=== PATIENT | male | born 1950 | race Caucasian/White ===

== ENCOUNTER 2016-04-17 04:17 | Emergency (ER) | payer MEDICARE ==
[2016-04-17] MEDS ORDERED: IOPAMIDOL 300 (61%) 100 ML VIAL IV ONE (04:18)
[2016-04-17] MEDS ORDERED: LACTATED RINGERS 1,000 ML ONE ×2 (04:45→05:47)
[2016-04-17 04:59] LABS: ABSOLUTE NEUTROPHIL COUNT 14.2 K/mm3 (1.8-7.7); BASO # 0.1 K/mm3 (0.0-0.2); BASO % 0.2 % (0.2-1.0); EOS # 2.9 (0.0-0.5); EOS % 13.6 % (0.9-2.9); HEMATOCRIT 49.4 % (32.0-52.0); HEMOGLOBIN 16.3 gm/l (14.0-18.0); IMM NEUT # 0.1 K/mm3 (0-0.2); IMM NEUT% 0.5 % (0-1); LYMPH # 2.8 (1.0-4.8); LYMPH % 13.4 % (15-45); MEAN CELL VOLUME 90.3 fl (80.0-94.0); MEAN CORPUSCULAR HEMOGLOBIN 29.8 pg (27.0-31.0); MEAN PLATELET VOLUME 10.5 fl (7.4-10.4); MONO # 1.1 (0.0-0.8); MONO % 5.3 % (4-12); PLATELET COUNT 253 K/mm3 (130-400); RED CELL DISTRIBUTION WIDTH 13.1 % (11.5-14.5)
[2016-04-17 05:37] LABS: ALB/GLOB RATIO 1.2 (>1.0); ALBUMIN 3.7 gm/dL (3.5-5.7); CALCIUM 8.8 mg/dL (8.6-10.3)
[2016-04-17 06:06] LABS: BAND 1 % (0-10); BASOPHIL 0 % (0-1); EOSINOPHIL 8 % (1-3); LYMPHOCYTE 14 % (15-45); MONOCYTE 3 % (4-12); NEUTROPHILS 74 % (43-75); TOTAL CELLS COUNTED 100
[2016-04-17 06:07] LABS: PLATELET ESTIMATE NORMAL (NORMAL)
--- NOTE | 2016-04-17 07:39 | RAD ---
Exam: Two-view chest COMPARISON: None INDICATION: Nausea, vomiting and diarrhea for 3 days. FINDINGS: PA and lateral views of the chest were obtained. Cardiac silhouette is within normal limits. Lungs are normally inflated. There is no focal airspace disease or pleural effusion. There is minor linear opacity near the left hilum, which may reflect either scarring or atelectasis. Lung leach are otherwise symmetric. Bones of the chest wall within normal limits. IMPRESSION: No acute pulmonary process.
--- NOTE | 2016-04-17 08:15 | CT ---
Exam Type: ABD/PELVIS W/ CON Date and Time: 04/17/2016 12:00 AM Clinical information: Nausea, vomiting and diarrhea for 3 days. Comparison: 03/11/2014 Technique: Contiguous axial 4 mm images were obtained from the lung bases through the pelvis after the uneventful IV administration of 125 cc of Isovue-300. Sagittal and coronal reformations with high resolution lung algorithm images were also obtained at this time. CT DI: 13.4 DLP 803.7 FINDINGS: Lung base : Dependent and atelectatic changes. Visualized heart:There is no pericardial effusion. LIVER: within normal limits. BILE DUCTS: normal caliber. GALLBLADDER: No calcified gallstones. Normal caliber wall. PANCREAS: within normal limits. SPLEEN: within normal limits. ADRENALS: within normal limits. KIDNEYS: within normal limits. Stomach and small BOWEL: Normal caliber. Large bowel: Air and stool are noted within the large bowel. Fluid is noted within the cecum. Additionally, there is an area of possible mass identified best seen on axial image 86 measuring approximately 4.6 x 2.3 cm. Differential considerations would include stool. Correlation with any recent colonoscopy data would be recommended. Consideration for evaluation via outpatient colonoscopy could also be made if no recent data is present. Appendix is normal. Diverticulosis without diverticulitis. LYMPH NODES: No enlarged mesenteric lymph nodes. PERITONEUM: no ascites or free air, no fluid collection. VESSELS: within normal limits RETROPERITONEUM: within normal limits. ABDOMINAL WALL: within normal limits. Bladder: Normal BONES: Mild degenerative changes. IMPRESSION: No acute inflammatory process within the abdomen or pelvis. Close clinical and radiographic follow-up are recommended. Possible mass lesion versus stool within the cecum. Correlation with any recent colonoscopic data would be recommended. Consideration for colonoscopy should be made if no recent data is present. Findings were called to Dr. Mackey at approximately 0 650 hours on 04/17/2016.
== END 2016-04-17 08:32 | disposition home or self-care (01) ==
LOC: ED 04:17
DX: K63.9 Disease of intestine, unspecified (principal); D72.1 Eosinophilia; R11.10 Vomiting, unspecified; R19.7 Diarrhea, unspecified; R10.9 Unspecified abdominal pain; E11.9 Type 2 diabetes mellitus without complications; Z79.84 Long term (current) use of oral hypoglycemic drugs
CPT/HCPCS: 83605; 83690; 85025; 80053; 84484; 71020; 74177; 99283; 96360; 93005; 99284; J7120 ×2; Q9967

== ENCOUNTER 2016-05-02 08:27 | Day surgery (SDC) | payer MEDICARE ==
[~2016-05-02 08:27] MED LIST: LACTATED RINGERS 1,000 ML IV SCH
[2016-05-02] MEDS ORDERED: PROPOFOL 20 ML IV ONE ×2 (08:52)
[2016-05-02] MEDS ORDERED: LIDOCAINE 2% (PRES FREE) 5 ML VIAL ONE (08:52)
[2016-05-02] MEDS ORDERED: IV START KIT ONE (09:19)
[2016-05-02] MEDS ORDERED: LACTATED RINGERS 1,000 ML ONE (09:19)
--- NOTE | 2016-05-06 13:20 | SURGPATH ---
[facility] [address] [place] [id number] Patient Name: SHAHRAM GAUTHIER MR#: [id number] : 1950 Gender: M Specimen #: [id number] Collected: 05/02/2016 Received: 05/03/2016 Reported: 05/06/2016 Submitting Phys: CONCHIS LU Copy To Phys: [facility] Clinical History / Pre-Operative Diagnosis: NAUSEA; VOMITING; DIARRHEA; ABNORMAL ABDOMINAL CT; RULE OUT CA Specimen Source / Surgical Procedure Performed: #1-CECAL MASS BIOPSY; #2-SIGMOID POLYP AT 25 CM; #3-RECTOSIGMOID BIOPSIES AT 10 CM HIGH PRIORITY DIAGNOSIS. REQUIRES CLINICAL ATTENTION Interpretation: 1. CECUM, BIOPSY: - MULTIPLE FRAGMENTS OF TUBULOVILLOUS ADENOMAS. - NO EVIDENCE OF MALIGNANCY. 2. COLON, SIGMOID 25 CM, BIOPSY: - TUBULAR ADENOMA. - NO EVIDENCE OF MALIGNANCY. 2. COLON, RECTOSIGMOID 10 CM, BIOPSY: - INVASIVE, MODERATELY DIFFERENTIATED ADENOCARCINOMA. Comment: The slide from part #3 has been reviewed at the pathology intradepartmental conference and the pathologists present agree with the diagnosis. Electronically Signed Out Harry Ugarte M.D., Ph.D. Gross Description: #1 The specimen is received in a formalin filled container labeled with the patient's name and "cecal mass biopsy". Seven hutchison-cui biopsies are 0.2-0.4 cm. Totally embedded in cassette #1. #2 The specimen is received in a formalin filled container labeled with the patient's name and "sigmoid polyp at 25 cm". A polypoid cui biopsy is 0.5 x 0.4 x 0.3 cm. Totally embedded in cassette #2. #3 The specimen is received in a formalin filled container labeled with the patient's name and "rectosigmoid biopsies at 10 cm". Seven hutchison-cui biopsies are 0.2-0.3 cm. Totally embedded in cassette #3. Audra Lock Microscopic Description: 1. Examination of multiple levels from the cecum biopsy shows multiple fragments of colonic mucosa with adenomatous changes within glands, tubules, and blunted villi. There is no evidence of malignancy. 2. Examination of multiple levels from the sigmoid colon biopsy at 25 cm shows a single fragment of colonic mucosa with adenomatous changes within glands and tubules. There is no evidence of malignancy. 3. Examination of multiple levels from the rectosigmoid colon biopsy at 10 cm shows fragments of ulcerated colonic mucosa with a proliferation of atypical epithelial cells in glands percolating through a fibrotic, desmoplastic stroma. 1: 06047 2: 22403 3: 63777 D12.0 D12.5 C19
--- NOTE | 2016-05-07 13:22 | PROCNOTE ---
Clovis Pollard [id number] DATE: 05/07/2016 This 66-year-old male patient within the practice of Jessica Beltr[facility] underwent colonoscopy on May 02 for a CAT scan that showed a cecal mass. The May 02 colonoscopy demonstrated a very large sessile cecal mass not amenable to colonoscopic polypectomy. Additionally noted, was a sigmoid semiannular mass with an appearance of carcinoma. A small tubular adenoma was additionally removed from the left colon. The pathology report demonstrates biopsies of the cecal mass showing tubular adenoma without dysplasia. The rectosigmoid junction mass shows invasive adenocarcinoma. The patient has been contacted and informed and surgical referral recommended and he agrees. The patient is being referred to Dr. Bimal Perez. Medical follow up will be by Jessica Beltran NP. JOB: [id number] CC: ERIN Heard Dr.
== END 2016-05-02 11:20 | disposition home or self-care (01) ==
LOC: SDC 08:27
PROVIDERS: ATTEND Internal Medicine Gastroenterology
PROC: 0DBN8ZX Excision of Sigmoid Colon, Via Natural or Artificial Opening Endoscopic, Diagnostic (ICD-10-PCS; principal; 2016-05-02)
PROC: 0DBH8ZX Excision of Cecum, Via Natural or Artificial Opening Endoscopic, Diagnostic (ICD-10-PCS; 2016-05-02)
PROC: 0DBP8ZX Excision of Rectum, Via Natural or Artificial Opening Endoscopic, Diagnostic (ICD-10-PCS; 2016-05-02)
PROC: 3E0H8GC Introduction of Other Therapeutic Substance into Lower GI, Via Natural or Artificial Opening Endoscopic (ICD-10-PCS; 2016-05-02)
DX: C19 Malignant neoplasm of rectosigmoid junction (principal); K57.30 Diverticulosis of large intestine without perforation or abscess without bleeding; D12.5 Benign neoplasm of sigmoid colon; E11.9 Type 2 diabetes mellitus without complications; E78.5 Hyperlipidemia, unspecified; E03.9 Hypothyroidism, unspecified
CPT/HCPCS: 45385; 45380; 45381; J7120

== ENCOUNTER 2016-06-05 07:39 | Inpatient (IN) | payer MEDICARE ==
[~2016-06-05 07:39] MED LIST changes: +ACETAMINOPHEN 500 MG TABLET PO SCH; +CELECOXIB 200 MG CAPSULE PO ONE; +GABAPENTIN 600 MG TABLET PO SCH; -LACTATED RINGERS 1,000 ML IV SCH
[2016-06-05] MEDS ORDERED: ERTAPENEM SODIUM 1 G in NS 0.9% (MINI-BAG PLUS) 50 ML IV PRN (09:00)
[2016-06-05] MEDS ORDERED: LACTATED RINGERS 1,000 ML ONE (09:10)
[2016-06-05] MEDS ORDERED: IV START KIT ONE (09:10)
[2016-06-05] MEDS ORDERED: CELECOXIB 200 MG CAPSULE ONE (09:22)
[2016-06-05] MEDS ORDERED: ACETAMINOPHEN 500 MG TABLET ONE (09:23)
[2016-06-05] MEDS ORDERED: GABAPENTIN 600 MG TABLET ONE (09:23)
[2016-06-05 09:59] LABS: ABSOLUTE NEUTROPHIL COUNT 5.9 K/mm3 (1.8-7.7); BASO # 0.1 K/mm3 (0.0-0.2); BASO % 0.6 % (0.2-1.0); EOS # 0.3 (0.0-0.5); EOS % 3.8 % (0.9-2.9); HEMATOCRIT 42.4 % (32.0-52.0); HEMOGLOBIN 13.9 gm/l (14.0-18.0); IMM NEUT% 0.2 % (0-1); LYMPH # 1.7 (1.0-4.8); LYMPH % 19.6 % (15-45); MEAN CELL VOLUME 89.1 fl (80.0-94.0); MEAN CORPUSCULAR HEMOGLOBIN 29.2 pg (27.0-31.0); MEAN CORPUSCULAR HGB CONC 32.8 g/dl (33.0-37.0); MEAN PLATELET VOLUME 10.2 fl (7.4-10.4); MONO # 0.7 (0.0-0.8); MONO % 8.2 % (4-12); NEUT % 67.6 % (43-75); PLATELET COUNT 204 K/mm3 (130-400); RED CELL DISTRIBUTION WIDTH 12.8 % (11.5-14.5)
[2016-06-05] MEDS ORDERED: SODIUM CHLORIDE 0.9% FLUSH 10 ML ONE (10:43)
[2016-06-05] MEDS ORDERED: CEFAZOLIN SODIUM 1,000 MG VIAL ONE (10:43)
[2016-06-05] MEDS ORDERED: FENTANYL 250 MCG/5 ML AMP ONE ×2 (11:12→15:18)
[2016-06-05] MEDS ORDERED: BUPIVACAINE 0.5% W/EPI SDV 30 ML VIAL ONE (11:16)
[2016-06-05] MEDS ORDERED: ONDANSETRON 4 MG/2ML 2 ML VIAL ONE (11:35)
[2016-06-05] MEDS ORDERED: FAMOTIDINE 10 MG/ML 2ML VIAL ONE (11:35)
[2016-06-05] MEDS ORDERED: PROPOFOL 20 ML IV ONE (11:35)
[2016-06-05] MEDS ORDERED: ROCURONIUM BROMIDE 10 MG/ML DOSE IV ONE ×10 (11:35→16:10)
[2016-06-05] MEDS ORDERED: HYDROMORPHONE HCL 2 MG/ML SYRINGE ONE ×2 (11:52→16:37)
[2016-06-05] MEDS ORDERED: ONDANSETRON 4 MG/2ML 2 ML VIAL IV PRN ×2 (12:07→20:02)
[2016-06-05] MEDS ORDERED: MEPERIDINE 25 MG/ML SYRINGE IV PRN (12:07)
[2016-06-05] MEDS ORDERED: NALOXONE HCL 0.4 MG/ML VIAL IV PRN (12:07)
[2016-06-05] MEDS ORDERED: ATROPINE SULFATE 0.4 MG/1 ML VIAL IV PRN (12:07)
[2016-06-05] MEDS ORDERED: PROMETHAZINE HCL 25 MG/ML VIAL IM PRN (12:07)
[2016-06-05] MEDS ORDERED: LABETALOL HCL 5 MG/ML 20ML VIAL IV PRN (12:07)
[2016-06-05] MEDS ORDERED: HYDRALAZINE HCL 20 MG/1 ML VIAL IV PRN (12:07)
[2016-06-05] MEDS ORDERED: LACTATED RINGERS 1,000 ML IV SCH (12:15)
[2016-06-05 13:15] LABS: CALCIUM 9.3 mg/dL (8.6-10.3)
[2016-06-05] MEDS ORDERED: METOPROLOL TARTRATE 1 MG/ML 5ML VIAL ONE (18:30)
[2016-06-05] MEDS ORDERED: MORPHINE SULFATE 4 MG/ML SYRINGE ONE (19:42)
[2016-06-05] MEDS: MORPHINE SULFATE 4 MG/ML SYRINGE IV PRN ×2 (19:45→19:51)
[2016-06-05] MEDS ORDERED: MENTHOL/CETYLPYRD 1 EACH LOZENGE PO PRN (20:02)
[2016-06-05] MEDS ORDERED: BLISTEX LIPSTICK 1 EACH TP PRN (20:02)
[2016-06-05] MEDS ORDERED: KETOROLAC TROMETHAMINE 30 MG/ML 1 ML VIAL IV PRN (20:02)
[2016-06-05] MEDS ORDERED: KETOROLAC TROMETHAMINE 15 MG/ML VIAL IV PRN (20:55)
[2016-06-05] MEDS ORDERED: PCA ADMINISTRATION KIT ONE (21:28)
[2016-06-05] MEDS ORDERED: PUMP TUBING ONE (21:28)
[2016-06-05] MEDS: HYDROMORPHONE PCA (MONOJECT) 12 MG/30 ML INJ.SOLN IV SCH (22:07)
[2016-06-05] MEDS: D5 1/2NS 1,000 ML IV SCH (22:10)
[2016-06-05] MEDS: ACETAMINOPHEN 500 MG TABLET PO SCH (22:16)
[2016-06-05] MEDS: GABAPENTIN 600 MG TABLET PO SCH (22:16)
[2016-06-06 01:52] VITALS: BMI 28.5
[2016-06-06] MEDS: ACETAMINOPHEN 500 MG TABLET PO SCH ×4 (02:02→20:46)
[2016-06-06] MEDS: HYDROMORPHONE PCA (MONOJECT) 12 MG/30 ML INJ.SOLN IV SCH ×2 (06:13→18:04)
[2016-06-06 06:33] LABS: HEMATOCRIT 37.5 % (32.0-52.0); HEMOGLOBIN 12.1 gm/l (14.0-18.0); MEAN CELL VOLUME 92.6 fl (80.0-94.0); MEAN CORPUSCULAR HEMOGLOBIN 29.9 pg (27.0-31.0); MEAN CORPUSCULAR HGB CONC 32.3 g/dl (33.0-37.0); RED CELL DISTRIBUTION WIDTH 13.2 % (11.5-14.5)
[2016-06-06 06:37] LABS: ALB/GLOB RATIO 1.3 (>1.0); ALBUMIN 3.3 gm/dL (3.5-5.7); CALCIUM 8.4 mg/dL (8.6-10.3)
[2016-06-06] MEDS: LEVOTHYROXINE SODIUM 75 MCG TABLET PO SCH (07:39)
--- NOTE | 2016-06-06 08:33 | OP ---
Clovis Pollard [id number] DATE OF SURGERY: 06/05/2016 PREOPERATIVE DIAGNOSES: Colon cancer rectosigmoid junction, large unresectable polyp at the cecum. POSTOPERATIVE DIAGNOSES: Colon cancer rectosigmoid junction, large unresectable polyp at the cecum. PROCEDURE: Laparoscopic low anterior resection, right hemicolectomy. CORPORATE LEGAL MANAGER: Mc Young. ANESTHESIA: Vanesa Shiva, General endotracheal. INDICATION: This is a 66-year-old male who was originally evaluated in the emergency room with a CT scan, this showed a mass in the cecum. He subsequently underwent follow up colonoscopy and he was found to have a mass originally described at the rectosigmoid junction at 12 cm. Biopsies showed adenocarcinoma. A biopsy of the mass in the cecum did not show obvious carcinoma. Endoscopic ultrasound shows mass of the rectosigmoid to be at 20 cm with invasion through the bowel wall. We have discussed options and patient has elected to proceed directly with surgery. We considered the possibility of a total colectomy. Without clear evidence of cancer at the proximal lesion we have decided to go with two separate resections. DESCRIPTION: With informed consent he was taken to the operating room where he was laid supine on the operating room table. General endotracheal anesthetic was administered. The legs were placed in Rajendra stirrups. A Alfonso catheter was placed. The abdomen and perineal region were prepped and draped in a sterile fashion. Local anesthetic was administered below the umbilicus. The incision was made to accommodate a gelport. Electrocautery was used to divide the subcutaneous fat. We dissected down to the fascia. It was opened with electrocautery. Peritoneum was opened with electrocautery. I could feel some adhesions to his prior umbilical hernia repair above this. We did not go through his mesh. I was able to bluntly dissect the adhesions free. The wound retractor was placed. The gelport was applied. I did put a couple of ports through this. We ended up putting another port in the left upper quadrant. We elected to proceed with a medial to lateral approach. The ileocolic vascular pedicle was identified. I ended up dividing the blood vessel separately with an Endo-BRUNO vascular load. I dissected the mesentery out to the distal ileum. We dissected the cephalad mesentery up until we identified the duodenum, this was carefully dissected around getting up into the mesentery of the transverse colon. At this point, we turned our attention laterally. The cecum was mobilized using the Ligasure at the White line of Toldt. This was dissected up to the hepatic flexure. There were actual adhesions of the hepatic flexure and omentum to the right lobe of the liver, this was carefully dissected free. We were eventually able to mobilize the entire hepatic flexure to the midline. Once we had the entire right colon mobilized and most of the mesenteric dissection performed I removed the gelport. We were able to bring out the entire right colon through the wound retractor. We appeared to have an excellent high ligation of the vascular pedicle. I divided the distal ileum with an Endo-BRUNO. We divided the proximal transverse colon with the Endo-BRUNO. With that the specimen was opened at the back table. The lesion was identified in the cecum. It did appear separate from the appendix and ileocecal valve. It was soft, but did appear to have some malignant potential. This was handed off to pathology. I was able to bring the distal ileum adjacent to the cecum in an iso-mesenteric anti-peristaltic fashion. A stay stitch of 2-0 Silk was placed. Enterotomies were created in both limbs. The Endo-BRUNO stapler was placed in both limbs and fired. The remaining defect was closed with TA stapler. We appeared to have an adequate lumen within the anastomosis. There is no evidence of leak. I did put a cross of 3-0 Silk at the apex of the anastomosis. This was allowed to fall up into the right upper quadrant. We then turned our attention to the rectosigmoid. He had a very redundant sigmoid colon. Again, we used a medial to lateral approach. The vascular pedicle to the sigmoid colon was elevated. I dissected the vessels out using the Ligasure. We had significantly difficulties identifying the ureter posterior and lateral. I ended up having to free up the sigmoid colon laterally using the Ligasure. This was extended down into the left side of the pelvis. Eventually, we did identify the ureter crossing over the iliac vessels. With that, I was then able to go back and identify the ureter from the medial approach. After doing so, I divided the vascular pedicle with the Endo-BRUNO. I then used the Ligasure to dissect down into the mesentery of the distal sigmoid. The peritoneum was scored on both sides using electrocautery. We dissected down to the rectosigmoid junction. Laparoscopically, there was no obvious tumor or ink seen. I ended up putting my hand through the gelport. In doing so, I could feel the possible tumor at the rectosigmoid junction. We were going to proceed with a low anterior resection getting into the middle rectum as our distal point of transection. Using the hand assist we dissected some of the lateral stalks away using the Ligasure. Dissected posteriorly in the presacral plane avoiding the presacral veins. Eventually, we had to mobilize the upper rectum such that I could feel an area of soft rectum below the palpable tumor. We spent a moderate amount of time dissecting the mesorectum away posteriorly from the area of distal transection. Eventually after some difficulty I was able to get an Endo-BRUNO stapler down into the pelvis and divide the colon at the junction between the mid and upper rectum. Pulling the specimen up through the wound retractor it did feel like we were at least 3 to 4 cm beyond the tumor. We did appear to have a good mesorectal excision. Proximally again the sigmoid colon was quite redundant. There was an area that was looped up on its self and adhesed and this had to be freed up. Eventually, I chose the site in the proximal sigmoid colon to divide. I cleared off some pericolic fat. A Vikki clamp was placed. Purse string was placed. The colon was divided. Some additional mesentery was divided with the Ligasure. The specimen was taken to the back table and opened. We did appear to have a good vascular and mesenteric dissection. We had good distal margin to the tumor. This was handed off to pathology as rectosigmoid junction with the distal aspect opened with a staple line. The proximal did not have a staple line. The sigmoid colon was inspected and appeared to accommodate a 31 sizer. The anvil of a 31 EEA stapler was placed and purse string tightened. We inspected the rectal stump with a sizer first. There was some concern for a possible defect in the rectal stump based on the specimen that was excised. No defect was seen. I did have Dr. Young actually put the colonoscope in the rectal stump and filled the pelvis with fluid. There was no leak from the stump and no defect was visualized. The stapler was placed in the rectal stump. We advanced the trocar out through the stump. This was mated with the sigmoid colon proximally. We made sure there was no twisting or tension. We made sure there was no pericolic fat trapped in the anastomosis. We made sure there was none of the pelvic peritoneum within the anastomosis. It was brought down to the appropriate level of tension and then fired. It was released and removed. We had two excellent mucosal donuts. The pelvis was filled with fluid. The colonoscope was replaced by Dr. Young. The proximal colon was clamped laparoscopically. The anastomosis was visualized, it was hemostatic. There was no signs of air leak. The air was removed. The fluid was suctioned. We had a small amount of spillage of stool from the distal sigmoid and for that reason the pelvis was vigorously irrigated and suctioned until clear. We appeared to have adequate hemostasis. We went back and reinspected our right upper quadrant ileocolic anastomosis, this appeared patent without evidence of leak. We irrigated around that area as well. We made sure there was omentum over the visceral structures. The right lower quadrant port site was closed with an 0 Vicryl using a bullet and a Shivam Penny suture passer. The gelport was removed. The fascial defect was closed with looped 0 PDS. Again, we were just below the prior umbilical hernia repair with mesh. I did have my upper most suture go through the mesh to make sure that did not fold upon itself. All wounds were vigorously irrigated. All skin wounds were closed with paulina. Sterile dressings were applied. A binder was applied. He tolerated the procedure and was taken to the recovery room in stable condition. Note was made that needle, instrument, and lap counts were reported as correct at the time of closure. JOB: [id number] CC: Jessica Beltran
[2016-06-06] MEDS: GABAPENTIN 600 MG TABLET PO SCH ×3 (09:47→20:46)
[2016-06-06] MEDS: D5 1/2NS 1,000 ML IV SCH (11:52)
[2016-06-06] MEDS ORDERED: IV START KIT ONE (13:29)
[2016-06-06] MEDS ORDERED: EXENATIDE MICROSPHERES 2 MG SQ SCH (16:00)
[2016-06-06] MEDS: ENOXAPARIN SODIUM 40 MG/0.4 ML SYRINGE SUB-Q SCH (16:51)
--- NOTE | 2016-06-06 17:05 | PDOC43 ---
- Subjective Subjective: Reports Pain Tolerable, Denies Flatus, Denies Nausea - Objective Vital Signs Temperature 97.7 F 06/06/16 15:00 Pulse Rate 89 06/06/16 15:00 Respiratory Rate 18 06/06/16 15:00 Blood Pressure 103/64 06/06/16 15:00 O2 Saturation by Pulse Oximetry 96 06/06/16 15:00 Oxygen Delivery Method Room Air Oxygen Flow Rate 0 Laboratory 06/06/16 05:30 06/06/16 05:30 06/06/16 06/06/16 06/06/16 11:38 07:57 05:30 RBC 4.05 L MCHC 32.3 L POC Capillary Glucose 148 H 148 H Calcium 8.4 L Total Protein 5.8 L Albumin 3.3 L 06/05/16 06/05/16 23:09 19:03 RBC MCHC POC Capillary Glucose 152 H 158 H Calcium Total Protein Albumin Active Medication Orders Category Date Time Status Acetaminophen [Tylenol] Med 06/05/16 20:02 Active 1,000 mg PO Q6H D5 1/2Ns 1,000 ml Med 06/05/16 20:02 Active IV 75 mls/hr Enoxaparin Sodium [Lovenox] Med 06/06/16 17:00 Active 40 mg SUB-Q Q24H Exenatide Microspheres [Bydureon Pen] Med 06/06/16 16:00 Active 2 mg SQ Q7D Gabapentin [Neurontin] Med 06/05/16 21:00 Active 600 mg PO TID Hydromorphone DIRECT OF REAL ESTATE (Monoject) [Dilaudid DIRECT OF REAL ESTATE (Monoject)] Med 06/05/16 20:02 Active See Protocol IV PCA12 Insulin Aspart (Dose) [Novolog (Dose)] Med 06/05/16 20:02 Active See Protocol SUB-Q WM/BEDTIME PRN Ketorolac Tromethamine [Toradol] Med 06/05/16 20:55 Active 15 mg IV Q6H PRN Levothyroxine Sodium [Levothroid] Med 06/06/16 07:30 Active 75 mcg PO QAMAC Lip [place] [Blistex] Med 06/05/16 20:02 Active 1 each TP PRN PRN Menthol/Cetylpyridinium [Cepacol] Med 06/05/16 20:02 Active 1 each PO PRN PRN Ondansetron 4 mg/2ml Vial [Zofran] Med 06/05/16 20:02 Active 4 mg IV Q4H PRN Sodium Chloride 0.9% Flush [Normal Saline 10ml Flush] Med 06/05/16 20:02 Active 10 - 50 ml IV PRN PRN Sodium Chloride 0.9% Flush [Normal Saline 10ml Flush] Med 06/06/16 01:00 Active 10 ml IV Q8HR Intake and Output 06/05/16 06/06/16 06/07/16 06:59 06:59 06:59 Intake Total 5382 Output Total 1410 Balance 3972 General: Alert, Oriented x3 Abdomen: Soft, Non-Distended Wound: Dressing Clean/Dry/Intact - Assessment/ Plan (1) Colon cancer Qualifiers: Colon location: overlapping sites Qualifier Code: (C18.8) Malignant neoplasm of overlapping sites of colon Status: AcuteAssessment/ Plan: Ambulate. DC magana in am. IS. Lovenox and SCDs for DVT prevention. (2) Hypoxia Status: AcuteAssessment/ Plan: Still on O2. Ambulate. IS. (3) Diabetes Qualifiers: Diabetes mellitus type: type 2 Diabetes mellitus complication status: without complication Diabetes mellitus fpc insulin use: without predatory animal exterminator use Qualifier Code: (E11.9) Type 2 diabetes mellitus without complications Status: ChronicAssessment/ Plan: BS acceptable. Insulin if needed. Restart oral meds when on more regular foods.
[2016-06-06] MEDS: INSULIN ASPART (DOSE) 100 UNITS/1 ML SUB-Q PRN (17:32)
[2016-06-07] MEDS: D5 1/2NS 1,000 ML IV SCH ×3 (02:42→23:31)
[2016-06-07] MEDS: ACETAMINOPHEN 500 MG TABLET PO SCH ×4 (02:43→20:20)
[2016-06-07] MEDS: HYDROMORPHONE PCA (MONOJECT) 12 MG/30 ML INJ.SOLN IV SCH (05:33)
[2016-06-07 06:40] LABS: HEMATOCRIT 31.7 % (32.0-52.0); HEMOGLOBIN 10.7 gm/l (14.0-18.0); MEAN CELL VOLUME 90.1 fl (80.0-94.0); MEAN CORPUSCULAR HEMOGLOBIN 30.4 pg (27.0-31.0); MEAN CORPUSCULAR HGB CONC 33.8 g/dl (33.0-37.0); RED CELL DISTRIBUTION WIDTH 13.1 % (11.5-14.5)
[2016-06-07 07:02] LABS: CALCIUM 8.5 mg/dL (8.6-10.3)
[2016-06-07] MEDS: LEVOTHYROXINE SODIUM 75 MCG TABLET PO SCH (07:41)
[2016-06-07] MEDS ORDERED: OXYCODONE HCL 5 MG TABLET PO PRN (08:17)
[2016-06-07] MEDS ORDERED: HYDROMORPHONE HCL 0.5 MG/0.5 ML SYRINGE IV PRN (08:18)
--- NOTE | 2016-06-07 08:21 | PDOC43 ---
- Subjective Subjective: Reports Pain Tolerable, Denies Flatus, Denies Nausea - Objective Vital Signs Temperature 97.7 F 06/07/16 07:31 Pulse Rate 98 06/07/16 07:31 Respiratory Rate 18 06/07/16 07:31 Blood Pressure 110/65 06/07/16 07:31 O2 Saturation by Pulse Oximetry 95 06/07/16 07:31 Oxygen Delivery Method Nasal Cannula Oxygen Flow Rate 2 Laboratory 06/07/16 06:26 06/07/16 06:26 06/07/16 06/06/16 06/06/16 06:26 20:46 17:23 RBC 3.52 L POC Capillary Glucose 114 H 162 H Calcium 8.5 L 06/06/16 11:38 RBC POC Capillary Glucose 148 H Calcium Active Medication Orders Category Date Time Status Acetaminophen [Tylenol] Med 06/05/16 20:02 Active 1,000 mg PO Q6H D5 1/2Ns 1,000 ml Med 06/05/16 20:02 Active IV 75 mls/hr Enoxaparin Sodium [Lovenox] Med 06/06/16 17:00 Active 40 mg SUB-Q Q24H Exenatide Microspheres [Bydureon Pen] Med 06/06/16 16:00 Active 2 mg SQ Q7D Gabapentin [Neurontin] Med 06/05/16 21:00 Active 600 mg PO TID Hydromorphone HCl [Dilaudid] Med 06/07/16 08:18 Ordered 0.5 - 1 mg IV Q2H PRN Insulin Aspart (Dose) [Novolog (Dose)] Med 06/05/16 20:02 Active See Protocol SUB-Q WM/BEDTIME PRN Ketorolac Tromethamine [Toradol] Med 06/05/16 20:55 Active 15 mg IV Q6H PRN Levothyroxine Sodium [Levothroid] Med 06/06/16 07:30 Active 75 mcg PO QAMAC Lip [place] [Blistex] Med 06/05/16 20:02 Active 1 each TP PRN PRN Menthol/Cetylpyridinium [Cepacol] Med 06/05/16 20:02 Active 1 each PO PRN PRN Ondansetron 4 mg/2ml Vial [Zofran] Med 06/05/16 20:02 Active 4 mg IV Q4H PRN Oxycodone HCl [Roxicodone] Med 06/07/16 08:17 Ordered 5 - 10 mg PO Q4H PRN Sodium Chloride 0.9% Flush [Normal Saline 10ml Flush] Med 06/05/16 20:02 Active 10 - 50 ml IV PRN PRN Sodium Chloride 0.9% Flush [Normal Saline 10ml Flush] Med 06/06/16 01:00 Active 10 ml IV Q8HR Intake and Output 06/06/16 06/07/16 06/08/16 06:59 06:59 06:59 Intake Total 5382 3054 Output Total 1410 3850 Balance 3972 -796 General: Alert, Oriented x3 Abdomen: Soft, Non-Distended Psych/Mental Status: Normal Affect - Assessment/ Plan (1) Colon cancer Qualifiers: Colon location: overlapping sites Qualifier Code: (C18.8) Malignant neoplasm of overlapping sites of colon Status: AcuteAssessment/ Plan: Ambulate. DC magana today. IS. Lovenox and SCDs for DVT prevention. (2) Hypoxia Status: AcuteAssessment/ Plan: Still on O2. Ambulate. IS. (3) Diabetes Qualifiers: Diabetes mellitus type: type 2 Diabetes mellitus complication status: without complication Diabetes mellitus long term care pharmacist insulin use: without long term care pharmacist use Qualifier Code: (E11.9) Type 2 diabetes mellitus without complications Status: ChronicAssessment/ Plan: BS acceptable. Insulin if needed. Restart oral meds when on more regular foods.
[2016-06-07] MEDS ORDERED: HYDROMORPHONE HCL 1 MG/ML SYRINGE IV PRN (08:34)
[2016-06-07] MEDS: GABAPENTIN 600 MG TABLET PO SCH ×3 (09:27→20:20)
[2016-06-07] MEDS ORDERED: PUMP TUBING ONE (09:35)
[2016-06-07] MEDS: ENOXAPARIN SODIUM 40 MG/0.4 ML SYRINGE SUB-Q SCH (17:07)
[2016-06-08] MEDS: ACETAMINOPHEN 500 MG TABLET PO SCH ×4 (01:33→20:20)
[2016-06-08] MEDS: LEVOTHYROXINE SODIUM 75 MCG TABLET PO SCH (07:09)
[2016-06-08 07:38] LABS: HEMATOCRIT 32.5 % (32.0-52.0); HEMOGLOBIN 10.9 gm/l (14.0-18.0); MEAN CELL VOLUME 88.1 fl (80.0-94.0); MEAN CORPUSCULAR HEMOGLOBIN 29.5 pg (27.0-31.0); MEAN CORPUSCULAR HGB CONC 33.5 g/dl (33.0-37.0)
[2016-06-08 07:57] LABS: CALCIUM 8.6 mg/dL (8.6-10.3)
[2016-06-08] MEDS: GABAPENTIN 600 MG TABLET PO SCH ×3 (08:30→20:20)
--- NOTE | 2016-06-08 10:06 | PDOC43 ---
- Subjective Subjective: Reports Pain Tolerable, Denies Flatus, Denies Bowel Movement, Denies Nausea - Objective Vital Signs Temperature 97.6 F 06/08/16 07:00 Pulse Rate 99 06/08/16 07:00 Respiratory Rate 18 06/08/16 07:00 Blood Pressure 129/84 06/08/16 07:00 O2 Saturation by Pulse Oximetry 92 06/08/16 07:00 Oxygen Delivery Method Room Air Oxygen Flow Rate 0 Laboratory 06/08/16 06:54 06/08/16 06:54 06/08/16 06/08/16 06/07/16 07:09 06:54 23:33 RBC 3.69 L Estimated GFR 97 H POC Capillary Glucose 150 H 138 H 06/07/16 06/07/16 17:10 12:44 RBC Estimated GFR POC Capillary Glucose 118 H 130 H Active Medication Orders Category Date Time Status Acetaminophen [Tylenol] Med 06/05/16 20:02 Active 1,000 mg PO Q6H Enoxaparin Sodium [Lovenox] Med 06/06/16 17:00 Active 40 mg SUB-Q Q24H Exenatide Microspheres [Bydureon Pen] Med 06/06/16 16:00 Active 2 mg SQ Q7D Gabapentin [Neurontin] Med 06/05/16 21:00 Active 600 mg PO TID Hydromorphone HCl [Dilaudid] Med 06/07/16 08:18 Active 0.5 - 1 mg IV Q2H PRN Hydromorphone HCl [Dilaudid] Med 06/07/16 08:34 Active 0.5 - 1 mg IV Q2H PRN Insulin Aspart (Dose) [Novolog (Dose)] Med 06/05/16 20:02 Active See Protocol SUB-Q WM/BEDTIME PRN Ketorolac Tromethamine [Toradol] Med 06/05/16 20:55 Active 15 mg IV Q6H PRN Levothyroxine Sodium [Levothroid] Med 06/06/16 07:30 Active 75 mcg PO QAMAC Lip [place] [Blistex] Med 06/05/16 20:02 Active 1 each TP PRN PRN Menthol/Cetylpyridinium [Cepacol] Med 06/05/16 20:02 Active 1 each PO PRN PRN Ondansetron 4 mg/2ml Vial [Zofran] Med 06/05/16 20:02 Active 4 mg IV Q4H PRN Oxycodone HCl [Roxicodone] Med 06/07/16 08:17 Active 5 - 10 mg PO Q4H PRN Sodium Chloride 0.9% Flush [Normal Saline 10ml Flush] Med 06/05/16 20:02 Active 10 - 50 ml IV PRN PRN Sodium Chloride 0.9% Flush [Normal Saline 10ml Flush] Med 06/06/16 01:00 Active 10 ml IV Q8HR Intake and Output 06/07/16 06/08/16 06/09/16 06:59 06:59 06:59 Intake Total 3054 1677 Output Total 3850 3150 Balance -796 -1473 General: Alert, Oriented x3 Abdomen: Soft, Non-Distended Wound: Well Approximated, No Drainage, No Erythema - Assessment/ Plan (1) Colon cancer Qualifiers: Colon location: overlapping sites Qualifier Code: (C18.8) Malignant neoplasm of overlapping sites of colon Status: AcuteAssessment/ Plan: Full liquids (ADA), Ambulate. IS. Lovenox and SCDs for DVT prevention. (2) Hypoxia Status: AcuteAssessment/ Plan: Off O2. Ambulate. IS. (3) Diabetes Qualifiers: Diabetes mellitus type: type 2 Diabetes mellitus complication status: without complication Diabetes mellitus equipment operator intermodal yard insulin use: without penitentiary use Qualifier Code: (E11.9) Type 2 diabetes mellitus without complications Status: ChronicAssessment/ Plan: BS acceptable. Insulin if needed. Restart oral meds when on more regular foods.
[2016-06-08] MEDS: ENOXAPARIN SODIUM 40 MG/0.4 ML SYRINGE SUB-Q SCH (16:44)
[2016-06-09] MEDS: ACETAMINOPHEN 500 MG TABLET PO SCH ×4 (03:23→20:08)
[2016-06-09] MEDS: D5 1/2NS 1,000 ML IV SCH (06:31)
[2016-06-09] MEDS: LEVOTHYROXINE SODIUM 75 MCG TABLET PO SCH (06:51)
[2016-06-09 07:24] LABS: HEMATOCRIT 31.7 % (32.0-52.0); HEMOGLOBIN 10.6 gm/l (14.0-18.0); MEAN CELL VOLUME 88.3 fl (80.0-94.0); MEAN CORPUSCULAR HEMOGLOBIN 29.5 pg (27.0-31.0); MEAN CORPUSCULAR HGB CONC 33.4 g/dl (33.0-37.0); RED CELL DISTRIBUTION WIDTH 13.1 % (11.5-14.5)
[2016-06-09 07:40] LABS: CALCIUM 8.6 mg/dL (8.6-10.3)
[2016-06-09] MEDS: GABAPENTIN 600 MG TABLET PO SCH ×3 (08:26→20:08)
--- NOTE | 2016-06-09 09:37 | PDOC43 ---
- Subjective Subjective: Reports Flatus, Reports Pain Tolerable, Reports Nausea, Denies Bowel Movement - Objective Vital Signs Temperature 97.6 F 06/09/16 07:22 Pulse Rate 90 06/09/16 07:22 Respiratory Rate 16 06/09/16 07:22 Blood Pressure 124/74 06/09/16 07:22 O2 Saturation by Pulse Oximetry 93 06/09/16 07:22 Oxygen Delivery Method Room Air Oxygen Flow Rate 0 Laboratory 06/09/16 06:33 06/09/16 06:33 06/09/16 06/09/16 06/08/16 06:50 06:33 10:42 RBC 3.59 L POC Capillary Glucose 115 H 141 H Active Medication Orders Category Date Time Status Acetaminophen [Tylenol] Med 06/05/16 20:02 Active 1,000 mg PO Q6H Enoxaparin Sodium [Lovenox] Med 06/06/16 17:00 Active 40 mg SUB-Q Q24H Exenatide Microspheres [Bydureon Pen] Med 06/06/16 16:00 Active 2 mg SQ Q7D Gabapentin [Neurontin] Med 06/05/16 21:00 Active 600 mg PO TID Hydromorphone HCl [Dilaudid] Med 06/07/16 08:18 Active 0.5 - 1 mg IV Q2H PRN Hydromorphone HCl [Dilaudid] Med 06/07/16 08:34 Active 0.5 - 1 mg IV Q2H PRN Insulin Aspart (Dose) [Novolog (Dose)] Med 06/05/16 20:02 Active See Protocol SUB-Q WM/BEDTIME PRN Levothyroxine Sodium [Levothroid] Med 06/06/16 07:30 Active 75 mcg PO QAMAC Lip [place] [Blistex] Med 06/05/16 20:02 Active 1 each TP PRN PRN Menthol/Cetylpyridinium [Cepacol] Med 06/05/16 20:02 Active 1 each PO PRN PRN Ondansetron 4 mg/2ml Vial [Zofran] Med 06/05/16 20:02 Active 4 mg IV Q4H PRN Oxycodone HCl [Roxicodone] Med 06/07/16 08:17 Active 5 - 10 mg PO Q4H PRN Sodium Chloride 0.9% Flush [Normal Saline 10ml Flush] Med 06/05/16 20:02 Active 10 - 50 ml IV PRN PRN Sodium Chloride 0.9% Flush [Normal Saline 10ml Flush] Med 06/06/16 01:00 Active 10 ml IV Q8HR Intake and Output 06/08/16 06/09/16 06/10/16 06:59 06:59 06:59 Intake Total 1677 600 Output Total 3150 1100 Balance -1473 -500 General: Alert, Oriented x3 Abdomen: Soft, Non-Distended Wound: Well Approximated, No Erythema Psych/Mental Status: Normal Affect - Assessment/ Plan (1) Colon cancer Qualifiers: Colon location: overlapping sites Qualifier Code: (C18.8) Malignant neoplasm of overlapping sites of colon Status: AcuteAssessment/ Plan: Diet as tolerated (ADA), Ambulate. IS. Lovenox and SCDs for DVT prevention. (2) Hypoxia Status: AcuteAssessment/ Plan: Off O2. Ambulate. IS. (3) Diabetes Qualifiers: Diabetes mellitus type: type 2 Diabetes mellitus complication status: without complication Diabetes mellitus assistant terminal manager insulin use: without assistant terminal manager use Qualifier Code: (E11.9) Type 2 diabetes mellitus without complications Status: ChronicAssessment/ Plan: BS acceptable. Insulin if needed. Restart oral meds.
[2016-06-09] MEDS: INSULIN ASPART (DOSE) 100 UNITS/1 ML SUB-Q PRN (11:21)
[2016-06-09] MEDS: ENOXAPARIN SODIUM 40 MG/0.4 ML SYRINGE SUB-Q SCH (16:40)
[2016-06-10] MEDS: ACETAMINOPHEN 500 MG TABLET PO SCH ×3 (01:48→14:38)
[2016-06-10] MEDS: LEVOTHYROXINE SODIUM 75 MCG TABLET PO SCH (07:37)
[2016-06-10] MEDS: GABAPENTIN 600 MG TABLET PO SCH ×2 (08:18→14:38)
--- NOTE | 2016-06-10 09:41 | SURGPATH ---
[facility] [address] [place] [id number] Patient Name: SHAHRAM GAUTHIER MR#: [id number] : 1950 Gender: M Specimen #: [id number] Collected: 06/05/2016 Received: 06/07/2016 Reported: 06/10/2016 Submitting Phys: FELY FINLEY Copy To Phys: SALLY DAVIS [facility] Addendum Present Clinical History / Pre-Operative Diagnosis: colon Lesions x2 Specimen Source / Surgical Procedure Performed: right hemicolectomy and rectosigmoid HIGH PRIORITY DIAGNOSIS. 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 - NO EVIDENCE OF MALIGNANCY IN 13 LYMPH NODES (0/13) FROM RECTOSIGMOID. - STAGE: pT3, pN0. - TUBULOVILLOUS ADENOMA LOCATED WITHIN THE CECUM. - NO EVIDENCE OF MALIGNANCY IN 17 LYMPH NODES (0/17) FROM RIGHT HEMICOLECTOMY. - SEE SYNOPTIC REPORT. COLORECTAL CANCER CASE SUMMARY: SPECIMEN: Rectosigmoid colon PROCEDURE: Partial colectomy SPECIMEN LENGTH: 32 cm TUMOR SITE: Rectosigmoid TUMOR SIZE: 2.5 cm long x 1.5 cm wide x 0.5 cm deep MACROSCOPIC TUMOR PERFORATION: Absent MACROSCOPIC INTACTNESS OF MESORECTUM: Complete HISTOLOGIC TYPE: Adenocarcinoma HISTOLOGIC GRADE: Low-grade (well to moderately differentiated) MICROSCOPIC TUMOR EXTENSION: Tumor invades through the muscularis propria into the subserosal adipose tissue MARGINS: Proximal Margin: 25 cm Distal Margin: 5 cm Circumferential/Radial Margin: 4.5 cm TREATMENT EFFECT (NEOADJUVANT THERAPY): No prior treatment LYMPHATIC INVASION: Not identified LARGE VESSEL INVASION: Not identified PERINEURAL INVASION: Not identified TUMOR DEPOSITS (DISCONTINUOUS EXTRAMURAL EXTENSION): Not identified TYPE OF POLYP IN WHICH INVASIVE CARCINOMA AROSE: Indeterminate TNM DESCRIPTORS: Not applicable PRIMARY TUMOR (pT): pT3: Tumor invades through the muscularis propria into pericolorectal tissues REGIONAL LYMPH NODES (pN): pN0: No regional lymph node metastasis Number involved / Number examined: 0 / 13 Additional 17 negative lymph nodes from right hemicolectomy (0/17) DISTANT METASTASIS (pM): Not applicable ANCILLARY STUDIES: MMR testing by IHC is pending and will be reported separately. ADDITIONAL PATHOLOGIC FINDINGS: Tubulovillous adenoma within the cecum Electronically Signed Out Harry Ugarte M.D., Ph.D. Addendum Date Reported: 06/10/2016 Signed Out Addendum Diagnosis MISMATCH REPAIR (MMR) PROTEIN EVALUATION BY IMMUNOHISTOCHEMISTRY: - MLH1 NUCLEAR EXPRESSION: INTACT - MSH2 NUCLEAR EXPRESSION: INTACT - MSH6 NUCLEAR EXPRESSION: INTACT - PMS2 NUCLEAR EXPRESSION: INTACT INTERPRETATION: - NO LOSS OF NUCLEAR EXPRESSION OF MMR PROTEINS - LOW PROBABILITY OF GALLAGHER SYNDROME OR MICROSATELLITE INSTABILITY RECOMMENDATION: - NO SPECIFIC FOLLOWUP RECOMMENDED Mismatch repair proteins are the products of four genes responsible for DNA mismatch repair. Inactivation of these genes may occur by germline mutation (i.e. Gallagher Syndrome) or sporadic inactivation. Loss of gene expression has a high sensitivity (90-95%) and specificity (100%) for the detection of microsatellite unstable cancers (MSI). Intact protein expression essentially excludes microsatellite unstable tumors or Gallagher Syndrome. However, intact protein expression does not exclude all types of hereditary cancer. If a strong family history of colorectal or other malignancies is present, genetic counseling may be indicated. Positive BRAF mutation analysis (if performed) is indicative of sporadic inactivation and virtually excludes Gallagher Syndrome. (Immunohistochemical analysis is performed using standard methods on a Leica automated instrument using paraffin embedded tumor. Primary anti-sera react with MLH1, MSH2, MSH6, and PMS2 (Clones ES05, 25D12, PU29, M0R4G, Novocastra). Analyte-specific reagents (ASR) are used in many laboratory tests necessary for standard medical care and generally do not require FDA approval. This test was developed and its performance characteristics determined by [facility]. It has not been cleared or approved by the U.S. Food and Drug Administration. [facility] is certified under the Clinical Laboratory Improvement Amendments of 1988 as qualified to perform high complexity clinical laboratory testing. All internal (nuclear) and external controls stain as expected.) [facility]/06/10/2016 Electronically Signed Out Tacos Vidales M.D. Gross Description: The specimen is received in formalin labeled with the patient's name and "right hemicolon and rectosigmoid". SPECIMEN: Organ/tissue received: Terminal ileum and right colon/cecum with appendix Fixation: One Number of pieces: One Dimensions: Terminal ileum-5.0 x 2.0 x 2.0 cm, cecum/right colon-13 x 2 5 cm, appendix-7.0 x 0.5 cm Orientation (If indicated): The anatomy is sufficient for orientation. TUMOR: Location: Cecal pouch 2 cm from the ileal cecal junction Dimensions/description: The exophytic brown bosselated somewhat friable mass is 5.5 x 4.5 x 2.5 cm. Distance from margins: Proximal: 7 cm Distal: 9 cm Radial/Vascular: 8.5 cm Estimated depth of invasion: Does not grossly involve the colon wall. DESCRIPTION OF UNINVOLVED COLON/RECTUM AND ADDITIONAL PATHOLOGIC FEATURES: Serosa: Unremarkable with attached fat. Mucosa: Torres, folded, unremarkable Mesorectum: Not included REGIONAL LYMPH NODES: 16 small possible lymph nodes are identified. TISSUE SUBMITTED FOR MICROSCOPIC EVALUATION: A en face stapled proximal margin B. en face stapled distal margin C. vascular margin D. ileal cecal junction and appendix E. lymph nodes x5 F. lymph nodes x3 G. lymph nodes x4 H. lymph nodes x4 I.-R. entire mass SPECIMEN: Organ/tissue received: Sigmoid colon and rectum Fixation: Formalin Number of pieces: One Dimensions: 32 x 2.5 x 2.5 cm Orientation (If indicated): The anatomy is sufficient for orientation. TUMOR: Location: Posterior wall, below peritoneal reflection Dimensions/description: The slightly exophytic brown granular mass is 2.5 x 1.5 cm and raised up to 0.5 cm above the surrounding mucosa. The mass has serpentine heaped up edges and a flat or ulcerating granular center. Distance from margins: Proximal: 25 cm Distal: 5 cm Radial/Vascular: 4.5 cm from radial margin, >10 cm from the vascular margin Estimated depth of invasion: Does not grossly appear to extend into the bowel wall. DESCRIPTION OF UNINVOLVED COLON/RECTUM AND ADDITIONAL PATHOLOGIC FEATURES: Serosa: Unremarkable with attached fat. Mucosa: Torres, folded, unremarkable Mesorectum: Thick, bulky, appears complete Other: There is dye around the mass. REGIONAL LYMPH NODES: 13 very small lymph nodes are identified. TISSUE SUBMITTED FOR MICROSCOPIC EVALUATION: S. en face distal margin T. en face proximal margin U. closest black-inked radial margin V. closest vascular margins [place]. entire mass Z. possible lymph nodes x4 AA possible lymph nodes x3 BB possible lymph nodes x6 LUANN Acosta Microscopic Description: Multiple sections from the right hemicolectomy and rectosigmoid partial colectomy specimens (submitted in same container) are microscopically examined. Sections from the right hemicolectomy specimen show a tubulovillous adenoma within the cecum. There is no evidence of malignancy in 17 lymph nodes. The resection margins are uninvolved. Sections from the rectosigmoid partial colectomy specimen show an invasive, moderately differentiated adenocarcinoma invading through the muscularis propria into the subserosal adipose tissue. There is no evidence of malignancy in 13 lymph nodes. Please see synoptic report for complete details. 1: 71591(2), [id number], 09176, 36880(3) E21
[2016-06-10 14:31] VITALS: BP 135/73
== END 2016-06-10 16:42 | disposition home or self-care (01) | DRG 331 ==
LOC: OR 09:05 → MS 20:09
PROVIDERS: ADMIT Surgery; ATTEND Surgery
PROC: 0DTF4ZZ Resection of Right Large Intestine, Percutaneous Endoscopic Approach (ICD-10-PCS; principal; 2016-06-05)
DX: C18.9 Malignant neoplasm of colon, unspecified (principal); R09.02 Hypoxemia; E11.9 Type 2 diabetes mellitus without complications; Z79.84 Long term (current) use of oral hypoglycemic drugs; D30.00 Benign neoplasm of unspecified kidney; I10 Essential (primary) hypertension; E03.9 Hypothyroidism, unspecified